=== PATIENT | male | born 1975 | race Two or more races ===

== ENCOUNTER 2017-04-14 19:56 | Inpatient (IN) | END 2017-04-16 15:45 | disposition home or self-care (01) | DRG 227 | DX: K42.0 Umbilical hernia with obstruction, without gangrene (principal); I10 Essential (primary) hypertension; K76.0 Fatty (change of) liver, not elsewhere classified; E11.9 Type 2 diabetes mellitus without complications; E66.9 Obesity, unspecified; Z79.84 Long term (current) use of oral hypoglycemic drugs; R91.1 Solitary pulmonary nodule; K40.20 Bilateral inguinal hernia, without obstruction or gangrene, not specified as recurrent; K44.9 Diaphragmatic hernia without obstruction or gangrene; Z68.29 Body mass index [BMI] 29.0-29.9, adult ==